=== PATIENT | male | born 1960 | race Caucasian/White ===

== ENCOUNTER → 2018-07-04 | Outpatient (CLI) | payer OTHER ==
[~2018-07-04] MED LIST: REGADENOSON 0.4 MG/5 ML SYRINGE ONE
== END | disposition home or self-care (01) ==
LOC: RAD 10:34
PROVIDERS: ATTEND Neurological Surgery
DX: M71.30 Other bursal cyst, unspecified site (principal); M43.16 Spondylolisthesis, lumbar region
CPT/HCPCS: 78452; 93017; A9502; J2785